=== PATIENT | male | born 1995 | race American Indian/Alaskan Native ===

== ENCOUNTER 2018-11-24 12:58 | Emergency (ER) | payer SELFPAY ==
[2018-11-24 13:12] VITALS: BP 133/78
--- NOTE | 2018-11-24 15:52 | Emergency Department Report ---
HPI - General Chief Complaint: Skin Rash Time Seen by Provider: 11/24/18 15:37 - HPI HPI: 23-year-old -[place] male presents to the emergency department with the complaint of a wart or some type of growth to the left ear that has been going on for "a minute." He says that he has a history of some type of work or growth behind the ear in the past that had to be cut out. Patient admits to "messing with it and pulling on it" and causing it to bleed in the past. No decreased hearing. He otherwise denies any past medical history. ED Past Medical Hx - Past Medical History Previous Medical History?: No - Surgical History Past Surgical History?: No Additional Surgical History: left ear wart removal - Social History Smoking Status: Never Smoker Substance Use Type: Marijuana ED Review of Systems ROS: Stated complaint: LFT EAR WART/PAIN Other details as noted in HPI Comment: All other systems reviewed and negative Constitutional: denies: chills, fever Eyes: denies: eye pain, vision change ENT: denies: ear pain, throat pain Respiratory: denies: cough, shortness of breath Cardiovascular: denies: chest pain, edema Gastrointestinal: denies: abdominal pain, vomiting Genitourinary: denies: dysuria, discharge Musculoskeletal: denies: back pain, arthralgia Skin: lesions. denies: change in color Neurological: denies: headache, numbness Physical Exam - Physical Exam Vital Signs: Vital Signs 11/24/18 13:10 Temperature 98.6 F Pulse Rate 68 Respiratory 16 Rate Blood Pressure 133/78 O2 Sat by Pulse 96 Oximetry Physical Exam: GENERAL: The patient is well-developed well-nourished. HEENT: Normocephalic. Atraumatic. Patient has moist mucous membranes. Normal appearing bilateral tympanic membranes. I'm able to visualize bilateral external ear canals. EYES: Extraocular motions are intact. NECK: Supple. Trachea is midline. CHEST/LUNGS: Clear to auscultation. There is no respiratory distress noted. HEART/CARDIOVASCULAR: Regular. There is no tachycardia. There is no obvious murmur. ABDOMEN: There is no abdominal distention. SKIN: Skin is warm and dry. There is a growth inside of the left ear just at the entrance to the external ear canal. This wart like growth has multiple ridges and foldings. It is firm and not fluctuant. It appears to be a regular skin tone color. NEURO: The patient is awake, alert, and oriented. The patient is cooperative. The patient has no focal neurologic deficits. The patient has normal speech. MUSCULOSKELETAL: There is no tenderness or deformity. There is no evidence of acute injury. ED Course Vital Signs 11/24/18 13:10 Temperature 98.6 F Pulse Rate 68 Respiratory 16 Rate Blood Pressure 133/78 O2 Sat by Pulse 96 Oximetry ED Medical Decision Making - Medical Decision Making Patient presents with a growth just inside of the left ear at the entrance of the external ear canal. I am able to see around the growth to see the entire canal and the tympanic membrane. The growth is nontender. There is no fluctuance or current bleeding, weeping or drainage. It does appear similar to a wart but it also has multiple ridges and areas that are folded. It may just be atypical wart but also has an appearance of some condyloma. Nonetheless, the patient will need follow-up with either dermatology or ENT to assess this and potentially remove it. Patient was given some referrals for dermatology to start there and if necessary he may need otolaryngology. He will return to the ER with any worsening of his symptoms or any acute distress. Critical Care Time: No Critical care attestation.: If time is entered above; I have spent that time in minutes in the direct care of this critically ill patient, excluding procedure time. 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 Return to the emergency Department with any worsening of your symptoms or any acute distress. Referrals: PRIMARY MD SONAM [Primary Care Provider] - 2-3 Days NOREEN PAUL MD [Staff Physician] - 2-3 Days José Miguel Cunha [Other] - 2-3 Days Forms: Work/School Release Form(ED) Time of Disposition: 15:52
== END 2018-11-24 15:57 | disposition home or self-care (01) ==
LOC: ED 12:58
DX: L98.9 Disorder of the skin and subcutaneous tissue, unspecified (principal); F12.10 Cannabis abuse, uncomplicated
CPT/HCPCS: 99282

== ENCOUNTER 2020-02-18 11:56 | Emergency (ER) | payer SELFPAY ==
[2020-02-18 12:04] VITALS: BP 147/100
--- NOTE | 2020-02-18 13:31 | Emergency Department Report ---
ED Male HPI - General Chief complaint: Urogenital-Male Stated complaint: LUMP ON GROIN Time Seen by Provider: 02/18/20 13:04 Source: patient Mode of arrival: Ambulatory Limitations: No Limitations - History of Present Illness Initial comments: 24-year-old male here report and labs knots in his scrotal area. Denies any pain. Denies urinary burning, frequency urgency. Denies any nausea or vomiting. Denies any abdominal or back pain. No medication prior to coming to the emergency room. Patient said he had full STD testing done and he did not h ave any STD about a month ago. He does not have a primary care doctor. MD Complaint: testicle pain, testicle swelling Onset/Timin -: week(s) Location: left testicle Radiation: none Severity scale (0 -10): 0 mass. denies: discharge, swelling, rash, urinary retention, blood in urine, dysuria, fever, nausea/vomiting, incontinence - Related Data Sexually active: Yes Allergies Allergy/AdvReac Type Severity Reaction Status Date / Time bee venom protein (honey bee) Allergy Swelling Verified 11/24/18 13:13 shrimp Allergy Swelling Verified 11/24/18 13:13 ED Review of Systems ROS: Stated complaint: LUMP ON GROIN Other details as noted in HPI Constitutional: denies: chills, fever ENT: denies: throat pain, congestion Respiratory: denies: cough, shortness of breath, wheezing Cardiovascular: denies: chest pain, palpitations, edema, syncope Gastrointestinal: denies: abdominal pain, nausea, vomiting Genitourinary: denies: urgency, dysuria, frequency, hematuria, discharge, testic ular pain, testicular mass Musculoskeletal: denies: back pain, joint swelling, arthralgia Skin: denies: rash Neurological: denies: headache, weakness, vertigo ED Past Medical Hx - Past Medical History Previous Medical History?: No - Surgical History Past Surgical History?: Yes Additional Surgical History: left ear wart removal - Family History Family history: no significant - Social History Smoking Status: Never Smoker Substance Use Type: Marijuana ED Physical Exam - General Limitations: No Limitations General appearance: alert, in no apparent distress - Head Head exam: Present: atraumatic, normocephalic - Eye Eye exam: Present: normal appearance, PERRL, EOMI Pupils: Present: normal accommodation - ENT ENT exam: Present: normal exam, normal orophraynx, mucous membranes moist, TM's normal bilaterally, normal external ear exam - Neck Neck exam: Present: normal inspection, full ROM. Absent: tenderness, lymphadenopathy - Respiratory Respiratory exam: Present: normal lung sounds bilaterally. Absent: respiratory distress, chest wall tenderness - Cardiovascular Cardiovascular Exam: Present: regular rate, normal rhythm, normal heart sounds - GI/Abdominal GI/Abdominal exam: Present: soft, normal bowel sounds. Absent: distended, tenderness, organomegaly, mass, bruit - exam: Present: normal inspection. Absent: testicular tenderness, urethral discharge, scrotal swelling, vertical testicular lie, circumcision External exam: Present: normal external exam. Absent: erythema, swelling, lesions, lacerations, ecchymosis, bleeding - Expanded Exam Expanded exam: Testicular Mass: Left, Cremasteric Reflex Present: Left, Right - Extremities Exam Extremities exam: Present: normal inspection, full ROM, normal capillary refill. Absent: tenderness, pedal edema - Back Exam Back exam: Present: normal inspection, full ROM. Absent: tenderness - Neurological Exam Neurological exam: Present: alert, oriented X3, normal gait - Psychiatric Psychiatric exam: Present: normal affect, normal mood - Skin Skin exam: Present: warm, dry, intact, normal color. Absent: rash ED Course Vital Signs 02/18/20 12:02 Temperature 98.7 F Pulse Rate 79 Respiratory 18 Rate Blood Pressure 147/100 [Left] O2 Sat by Pulse 100 Oximetry - Reevaluation(s) Reevaluation #1: 02/18/20 15:16 Patient stable in no acute distress. Urinalysis without any infection and testicular ultrasound shows left varicocele ED Medical Decision Making - Radiology Data Radiology results: report reviewed Ultrasound - Medical Decision Making 24-year-old male here report that he has left testicular mass without any pain. Physical findings for lump to left testicle without any tenderness to palpate otherwise normal exam. Ultrasound of testicles dictated by radiologist and report reviewed by myself. Findings for left varicocele. This was discussed with patient and discharge information given in diagnosis. He voiced understanding patient given information to follow-up with primary care physician and urologist and he voiced understanding. Discharged home in stable condition Critical care attestation.: If time is entered above; I have spent that time in minutes in the direct care of this critically ill patient, excluding procedure time. ED Disposition Clinical Impression: Left varicocele Disposition: DC-01 TO HOME OR SELFCARE Is pt being admited?: No Does the pt Need Aspirin: No Condition: Stable Instructions: Varicocele (ED) Additional Instructions: Please follow-up with urologist as instructed If your condition worsens, return to the emergency room. Referrals: HERBERT CASTILLOYANA ROSA [Provider Group] - 02/20/20 [facility] [Outside] - 02/20/20
[2020-02-18 13:44] LABS: Bilirubin,Urine NEG (Negative); Blood,Urine NEG (Negative); Color,Urine Yellow (Yellow); Protein,Urine <15 mg/dL mg/dL (Negative); Urobilinogen,Urine < 2.0 mg/dL (<2.0); WBC,Urine < 1.0 /HPF (0.0-6.0)
--- NOTE | 2020-02-18 14:44 | Ultrasound Report ---
SCROTAL ULTRASOUND WITH DOPPLER HISTORY: Lump in left testicle COMPARISON: None. TECHNIQUE: Grayscale, color and spectral Doppler images were obtained of the scrotum. FINDINGS: RIGHT: Right testicle: No significant abnormality. No mass. Right testicular size: 3.5 x 8 x 1.1 x 2.41 cm. Right epididymis: No significant abnormality. LEFT: Left testicle: No significant abnormality. No mass. A small varicoceles present Left testicular size: 4.02 x 1.96 x 2.38 cm. Left epididymis: Small 0.3 cm epididymal cyst Additional findings: Color flow Doppler is noted bilaterally IMPRESSION: 1. Left varicocele Signer Name: Dell Joseph MD Signed: 02/18/2020 2:40 PM Workstation Name: [email or web address]
== END 2020-02-18 15:32 | disposition home or self-care (01) ==
LOC: ED 11:56
DX: I86.1 Scrotal varices (principal); F12.90 Cannabis use, unspecified, uncomplicated; Z91.030 Bee allergy status
CPT/HCPCS: 81001; 93975; 99283

== ENCOUNTER 2021-06-17 08:18 | Emergency (ER) | payer SELFPAY ==
[2021-06-17] MEDS ORDERED: AMOXICILLIN 500 MG CAP PO ONE (10:34)
[2021-06-17] MEDS ORDERED: predniSONE 20 MG TAB PO NR (11:00)
--- NOTE | 2021-06-17 11:14 | Emergency Department Report ---
Minor Respiratory - HPI Chief Complaint: Earache Stated Complaint: PAIN(L) RIB CAGE/ (R) EAR BLOCKED Time Seen by Provider: 06/17/21 10:33 Duration: 2 Days Pain Location: Ear, Chest Severity: mild Minor Respiratory: Yes Able to Tolerate Fluids, Yes Ear Pain, Yes Chest Pain (rib l), No Rhinorrhea, No Sore Throat, No Cough, No Sick Contacts, No Hemoptysis, No Shortness of Breath, No Fever Other History: Patient is a 26-year-old male that comes to the emergency room with 2 complaints. First, after cleaning his ear with a Q-tip he noticed that he had ear pain, some clear discharge and had muffled hearing. He then states that for the past several months he has had lower left rib cage. He associates this with working as he lives a lot at his job. The pain is worse with movement. It is a dull aching. He is taking nothing for it prior to arrival in the ER. Patient denies fever or chills. He denies cough. He denies abdominal pain. He denies back pain. ED Review of Systems ROS: Stated complaint: PAIN(L) RIB CAGE/ (R) EAR BLOCKED Other details as noted in HPI Comment: All other systems reviewed and negative ED Past Medical Hx - Past Medical History Previous Medical History?: No - Surgical History Past Surgical History?: Yes Additional Surgical History: left ear wart removal - Family History Family history: no significant - Social History Smoking Status: Current Every Day Smoker Substance Use Type: Alcohol - Medications Home Medications: Home Medications Medication Instructions Recorded Confirmed Last Taken Type Amoxicillin [Trimox CAP] 500 mg PO BID #20 capsule 06/17/21 Unknown Rx Minor Respiratory Exam - Exam General: Vital signs noted. No distress. Alert and acting appropriately. HEENT: Yes Moist Mucous Membranes, No Pharyngeal Erythema, No Pharyngeal Exudates, No Rhinorrhea, No Conjuctival Injection, No Frontal Tenderness, No Maxillary Tenderness Ear: Right EAC Discharge (tm rupture ), Neither TM Bulge, Neither TM Erythema, Neither EAC Pain Neck: Yes Supple, No Adenopathy Lungs: Yes Good Air Exchange, No Wheezes, No Ronchi, No Stridor, No Cough, No Labored Respirations, No Retractions, No Use of Accessory Muscles, No Other Abnormal Lung Sounds Heart: Yes Regular, No Murmur Abdomen: Yes Normal Bowel Sounds, No Tenderness, No Peritoneal Signs Skin: No Rash, No Edema Neurologic: Alert and oriented, no deficits. Musculoskeletal: Unremarkable. ED Course Vital Signs 06/17/21 09:05 Temperature 98.3 F Pulse Rate 61 Respiratory 16 Rate Blood Pressure 137/75 O2 Sat by Pulse 100 Oximetry ED Medical Decision Making - Radiology Data Radiology results: report reviewed, image reviewed nap - Medical Decision Making Vital Signs 06/17/21 09:05 Temperature 98.3 F Pulse Rate 61 Respiratory 16 Rate Blood Pressure 137/75 O2 Sat by Pulse 100 Oximetry R TM ruptured sp QTip trauma medicated with amox and prednisone in ER xray nap dc home with dc plan of care. Patient verbalizes understanding of discharge plan of care. He understands that he should not use Q-tips in his ears. I have told him about Cerumenex but told him that he cannot use that until his ear is healed. He understands that he needs to follow-up with an ENT. Referral has been given. On discharge patient is ambulatory, nonill nontoxic appearing. - Differential Diagnosis ro fx; OM/TM rupture Critical care attestation.: If time is entered above; I have spent that time in minutes in the direct care of this critically ill patient, excluding procedure time. ED Disposition Clinical Impression: Tympanic membrane perforation, Rib pain on left side Disposition: DC-01 TO HOME OR SELFCARE Is pt being admited?: No Does the pt Need Aspirin: No Condition: Stable Instructions: Eardrum Rupture, Adult Additional Instructions: med as ordered today NO QTIPS use cerumenex over the counter for your ears-- ONCE YOU ARE HEALED NOTHING TO GO IN EARS UNTIL CLEARED BY ENT motrin or tylenol for pain follow up with pcp for rib pain and ENT for ear Prescriptions: Amoxicillin [Trimox CAP] 500 mg PO BID #20 capsule Referrals: JENIFER THOMAS MD [Staff Physician] - 3-5 Days EMI CAST MD [Staff Physician] - 3-5 Days Time of Disposition: 11:12
--- NOTE | 2021-06-17 11:43 | XRay Report ---
XR ribs UNI w PA chest 3+V LT INDICATION: l rib pain. COMPARISON: No relevant prior imaging study available. FINDINGS: No pulmonary or pleural abnormality. Left ribs are unremarkable, no fracture. IMPRESSION: 1. No acute findings. Signer Name: Conrad Anderson MD Signed: 06/17/2021 11:38 AM Workstation Name: [email or web address]
[2021-06-17 11:59] VITALS: BP 136/72
== END 2021-06-17 11:59 | disposition home or self-care (01) ==
LOC: ED 08:18
DX: H72.91 Unspecified perforation of tympanic membrane, right ear (principal); R07.81 Pleurodynia; H92.11 Otorrhea, right ear; F17.290 Nicotine dependence, other tobacco product, uncomplicated; Z98.890 Other specified postprocedural states; Z91.030 Bee allergy status; Z91.013 Allergy to seafood
CPT/HCPCS: 71101; 99283; J7512

== ENCOUNTER 2021-12-31 20:00 | Emergency (ER) | payer SELFPAY ==
[2021-12-31] MEDS ORDERED: IPRATROPIUM/ALBUTEROL SULFATE 3 ML AMPUL.NEB IH ONE ×2 (21:11→21:15)
[2021-12-31] MEDS ORDERED: SODIUM CHLORIDE 0.9% 1000 ML 1,000 ML IV ONE (21:17)
[2021-12-31] MEDS ORDERED: methylPREDNISolone Sod Succinate 125 MG/2 ML INJ IV ONE (21:17)
--- NOTE | 2021-12-31 21:44 | XRay Report ---
XR chest 1V ap INDICATION / CLINICAL INFORMATION: Asthma COMPARISON: 06/17/2021 FINDINGS: SUPPORT DEVICES: None. HEART / MEDIASTINUM: No significant abnormality. LUNGS / PLEURA: Lungs are clear. Costophrenic sulci are sharp. No pneumothorax. ADDITIONAL FINDINGS: No significant additional findings. IMPRESSION: 1. No acute findings. Signer Name: Merritt Hernandez MD Signed: 12/31/2021 9:39 PM Workstation Name: [id number]
[2021-12-31 21:59] LABS: Mean Corpuscular HGB Conc 30 % (32-34); Mean Corpuscular Volume 91 fl (84-94); Platelet Count 264 K/mm3 (140-440); Red Blood Count 5.49 M/mm3 (3.65-5.03); Red Cell Distribution Width 12.5 % (13.2-15.2)
[2021-12-31 22:03] LABS: Alanine Aminotransferase 63 units/L (7-56); Albumin 4.9 g/dL (3.9-5); BUN/Creatinine Ratio 9; Blood Urea Nitrogen 7 mg/dL (9-20); Calcium 9.8 mg/dL (8.4-10.2); Hematocrit 49.9 % (35.5-45.6); Hemoglobin 15.1 gm/dl (11.8-15.2); Hemolysis Index 5
[2021-12-31 23:03] LABS: Total Cells Counted 100
[2021-12-31 23:04] LABS: Platelet Estimate Consistent w Auto; RBC Morphology Normal
--- NOTE | 2021-12-31 23:37 | Emergency Department Report ---
ED Asthma HPI - General Chief Complaint: Adult Asthma Stated Complaint: SOB Time Seen by Provider: 12/31/21 21:15 Source: patient Mode of arrival: Ambulatory Limitations: No Limitations - History of Present Illness MD Complaint: "asthma attack" -: hour(s) Asthma History: childhood onset Severity: mild Context: none known Associated Symptoms: none Treatments Prior to Arrival: inhaled bronchodilator - Related Data Current Asthma Therapy: none Previous Rx's Medication Instructions Recorded Last Taken Type Amoxicillin [Trimox CAP] 500 mg PO BID #20 capsule 06/17/21 Unknown Rx Albuterol Mdi (or & Nicu Only) 2 puff IH QID PRN #8.5 gram 12/31/21 Unknown Rx [ProAir HFA Inhaler] Azithromycin [Zithromax Z-MARIE] 250 mg PO DAILY #6 12/31/21 Unknown Rx methylPREDNISolone [Medrol 4MG 4 mg PO UNK #1 12/31/21 Unknown Rx DOSEPAK (21 tabs)] Allergies Allergy/AdvReac Type Severity Reaction Status Date / Time bee venom protein (honey bee) Allergy Swelling Verified 06/17/21 09:02 shrimp Allergy Swelling Verified 06/17/21 09:02 ED Review of Systems ROS: Stated complaint: SOB Other details as noted in HPI Constitutional: denies: chills, fever Eyes: denies: eye pain, eye discharge, vision change ENT: denies: ear pain, throat pain Respiratory: denies: cough, shortness of breath, wheezing Cardiovascular: denies: chest pain, palpitations Endocrine: no symptoms reported Gastrointestinal: denies: abdominal pain, nausea, diarrhea Genitourinary: denies: urgency, dysuria Musculoskeletal: denies: back pain, joint swelling, arthralgia Skin: denies: rash, lesions Neurological: denies: headache, weakness, paresthesias Psychiatric: denies: anxiety, depression Hematological/Lymphatic: denies: easy bleeding, easy bruising ED Past Medical Hx - Past Medical History Previous Medical History?: Yes Hx Asthma: Yes - Surgical History Past Surgical History?: Yes Additional Surgical History: left ear wart removal - Social History Smoking Status: Current Every Day Smoker Substance Use Type: Alcohol - Medications Home Medications: Home Medications Medication Instructions Recorded Confirmed Last Taken Type Amoxicillin [Trimox CAP] 500 mg PO BID #20 capsule 06/17/21 Unknown Rx Albuterol Mdi (or & Nicu Only) 2 puff IH QID PRN #8.5 gram 12/31/21 Unknown Rx [ProAir HFA Inhaler] Azithromycin [Zithromax Z-MARIE] 250 mg PO DAILY #6 12/31/21 Unknown Rx methylPREDNISolone [Medrol 4MG 4 mg PO UNK #1 12/31/21 Unknown Rx DOSEPAK (21 tabs)] ED Physical Exam - General Limitations: No Limitations General appearance: alert, in no apparent distress - Head Head exam: Present: atraumatic, normocephalic - Eye Eye exam: Present: normal appearance - ENT ENT exam: Present: mucous membranes moist - Neck Neck exam: Present: normal inspection - Respiratory Respiratory exam: Present: normal lung sounds bilaterally, wheezes, rhonchi. Absent: respiratory distress - Cardiovascular Cardiovascular Exam: Present: regular rate, normal rhythm. Absent: systolic murmur, diastolic murmur, rubs, gallop - GI/Abdominal GI/Abdominal exam: Present: soft, normal bowel sounds - Rectal Rectal exam: Present: deferred - Extremities Exam Extremities exam: Present: normal inspection - Back Exam Back exam: Present: normal inspection - Neurological Exam Neurological exam: Present: alert, oriented X3 - Psychiatric Psychiatric exam: Present: normal affect, normal mood - Skin Skin exam: Present: warm, dry, intact, normal color. Absent: rash ED Course Vital Signs 12/31/21 21:09 Temperature 97.8 F Pulse Rate 86 Respiratory 18 Rate Blood Pressure 143/101 O2 Sat by Pulse 96 Oximetry - Reevaluation(s) Reevaluation #1: 12/31/21 23:36 work up neg , steriods given and nebs , feels better , x ray clear no distress ED Medical Decision Making - Lab Data Result diagrams: 12/31/21 21:27 12/31/21 21:27 Critical care attestation.: If time is entered above; I have spent that time in minutes in the direct care of this critically ill patient, excluding procedure time. ED Disposition Clinical Impression: Asthma exacerbation Disposition: 01 HOME / SELF CARE / HOMELESS Is pt being admited?: No Does the pt Need Aspirin: No Condition: Stable Instructions: Asthma, Adult Referrals: RAMIRO HERNANDEZ MD [Primary Care Provider] - 3-5 Days
[2022-01-01 00:22] VITALS: BP 142/73
== END 2022-01-01 00:21 | disposition home or self-care (01) ==
LOC: ED 20:00
DX: J45.901 Unspecified asthma with (acute) exacerbation (principal); F17.200 Nicotine dependence, unspecified, uncomplicated; Z72.89 Other problems related to lifestyle; Z91.030 Bee allergy status; Z91.013 Allergy to seafood; Z79.899 Other long term (current) drug therapy
CPT/HCPCS: 36415; 71045; 80053; 85007; 85025; 94640; 96361; 96374; 99284; J2930; J7030; Q0162